=== PATIENT | male | born 1970 | race Hispanic/Latino ===

== ENCOUNTER 2020-08-10 17:28 | Emergency (ER) | payer SELFPAY ==
[~2020-08-10] VITALS: Ht 180.3 cm; Wt 108.9 kg
--- NOTE | 2020-08-12 15:18 | EKG ---
[facility] [address] [facility] [place], [place] [address] Signed Normal sinus rhythm Normal ECG No previous ECGs available Confirmed by GER NG MD ([id number]) on 08/12/2020 3:18:06 PM Electronically Signed By: GER NG MD 08/12/20 1518 PATIENT NAME: ISIDRO ESTRADA Electrocardiogram DATE OF : 74 PHYSICIAN: GER NG MD REPORT #: [id number] REPORT IS CONFIDENTIAL AND NOT TO BE RELEASED WITHOUT AUTHORIZATION
== END 2020-08-10 19:25 | disposition home or self-care (01) ==
LOC: ED 17:28
DX: R07.2 Precordial pain (principal); E11.9 Type 2 diabetes mellitus without complications; Z87.891 Personal history of nicotine dependence
CPT/HCPCS: 71045; 80053; 83735; 84484; 85025; 93005; 93010; 99285-25